=== PATIENT | female | born 1990 | race Caucasian/White ===

== ENCOUNTER 2017-04-13 21:31 | Outpatient (CLI) | payer OTHER ==
[~2017-04-13] VITALS: Ht 165.1 cm; Wt 68.1 kg
[~2017-04-13 21:31] MED LIST: ACHD5005 PO; BSP5T PO; CODE-54 PO; CYCL10TA9 PO; DCS100C PO; FRS325T PO; IBP800T PO; Ibuprofen PO; NAPR-243 PO; NITR-65 PO; PREN1COM11 PO; TRAM50TA2; TRAM50TA2 PO; TRM50T PO
[2017-04-13 21:45] VITALS: BP 121/71
[2017-04-13 22:01] LABS: BILIRUBIN,URINE NEGATIVE (NEGATIVE); KETONES,URINE NEGATIVE (NEGATIVE); LEUKOCYTE ESTERASE ,URINE NEGATIVE (NEGATIVE); NITRITE,URINE NEGATIVE (NEGATIVE); PH,URINE 6 (5-9); PROTEIN,URINE NEGATIVE (NEGATIVE); UROBILINOGEN,URINE NORMAL (NORMAL)
== END 2017-04-13 22:43 | disposition home or self-care (01) ==
LOC: WSo 21:31 → LDRP 21:31 → WSo 22:43
PROVIDERS: ATTEND Family Medicine
DX: O99.89 Other specified diseases and conditions complicating pregnancy, childbirth and the puerperium (principal); N89.8 Other specified noninflammatory disorders of vagina; Z3A.27 27 weeks gestation of pregnancy
CPT/HCPCS: 81000; 99212

== ENCOUNTER → 2017-04-23 | Outpatient (CLI) | payer OTHER ==
--- NOTE | 2017-04-23 16:29 | Diagnostic Imaging Report ---
INDICATION: Late care undergoing evaluation for size and dates as well as anatomical assessment. TECHNIQUE: Multiple real-time grayscale images were obtained over the gravid uterus. COMPARISON: None FINDINGS: Single viable intrauterine currently in a cephalic presentation. There is a lower limit amount of amniotic fluid index at 7.7 cm. Placenta along the fundal aspect without findings to suggest previa. Biometrical measurements are as follows: Biparietal 7.36 cm, age 29 weeks 4 days. Head circumference 27.49 cm, age 30 weeks 1 days. Abdominal circumference 25.70 cm, age 30 weeks 0 days. Femur length 5.71 cm, age 30 weeks 0 days. Sonographic estimate age: 30 weeks 0 days. Sonographic estimated date of delivery: 07/02/2017. Estimated Weight: 1471 gm (+/- 215 gm). LMP percentile: N/A%. heart rate: 149 beats per minute. number: 1 of 1. IMPRESSION: Single viable intrauterine currently in a cephalic presentation. Sonographically estimated age 30 weeks 0 days for an estimated date of delivery July 02, 2017. There is borderline oligohydramnios present. Dictated by: Dictated on workstation # [id number]
== END ==
LOC: RAD 15:09
PROVIDERS: ATTEND Family Medicine
DX: Z36.3 Encounter for antenatal screening for malformations (principal); Z3A.30 30 weeks gestation of pregnancy
CPT/HCPCS: 76805

== ENCOUNTER → 2017-05-15 | Outpatient (CLI) | payer OTHER ==
--- NOTE | 2017-05-15 11:24 | Diagnostic Imaging Report ---
INDICATION: History of late care. heart arrhythmia TECHNIQUE: The fetus was observed by the floorworker lasting for purposes of a nonstress biophysical profile evaluation. FINDINGS: Intrauterine is currently in a cephalic presentation. The placenta is along the posterior fundal aspect without evidence for previa. cardiac activity at 149 beats per minute. Normal amount of amniotic fluid with an index at 9.9 cm. Biophysical Profile Scoring: breathin Body movement: 2 tone: 2 Amniotic fluid: 2 Total BPP Score: 8/8 IMPRESSION: 1. Normal biophysical profile score. Dictated by: Dictated on workstation # [id number]
== END ==
LOC: RAD 10:52
PROVIDERS: ATTEND Family Medicine
DX: Z36.2 Encounter for other antenatal screening follow-up (principal); Z3A.32 32 weeks gestation of pregnancy
CPT/HCPCS: 76819

== ENCOUNTER 2017-06-15 21:05 | Outpatient (CLI) | payer OTHER ==
[~2017-06-15] VITALS: Ht 162.6 cm; Wt 76.3 kg
[2017-06-15 21:20] VITALS: BP 126/75
[2017-06-15 21:33] LABS: BILIRUBIN,URINE NEGATIVE (NEGATIVE); KETONES,URINE NEGATIVE (NEGATIVE); LEUKOCYTE ESTERASE ,URINE NEGATIVE (NEGATIVE); NITRITE,URINE NEGATIVE (NEGATIVE); PH,URINE 6 (5-9); PROTEIN,URINE NEGATIVE (NEGATIVE); UROBILINOGEN,URINE NORMAL (NORMAL)
[2017-06-15 21:40] LABS: SQUAMOUS EPITHELIAL CELL,UR RARE /HPF
[2017-06-15] MEDS: D5 LR IV SOLUTION 1,000 ML IV SCH (22:30)
[2017-06-15] MEDS ORDERED: D5 LR IV SOLUTION 1,000 ML IV ONE (22:39)
[2017-06-15] MEDS ORDERED: PREN-142 PO (23:32)
[2017-06-16 04:26] VITALS: BP 120/69
[2017-06-16] MEDS ORDERED: D5 LR IV SOLUTION 1,000 ML IV ONE (06:33)
[2017-06-16] MEDS: D5 LR IV SOLUTION 1,000 ML IV SCH (06:45)
[2017-06-16 07:23] VITALS: BP 128/81
--- NOTE | 2017-06-16 07:30 | Short Stay Summary ---
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 Patient is currently in long-term and was brought in by [facility]'s Department. Apparently she has also had a little bit of vaginal spotting. Date of Admission patient was not admitted but kept as an outpatient and arrived late p.m. of June 15, 2017 Date of Discharge June 16, 2017 Time Seen by Provider: 07:25 Attending Physician Kolton Alonso MD Admitting Physician Melva Steinberg MD Consult Allergies and Home Medications Allergies Coded Allergies: No Known Drug Allergies (Verified , 08/08/09) Home Medications Vit No.124/Iron/FA 1 Each Tablet, 1 EACH PO DAILY, (Reported) Past Jzuqgpf-Bywnck-Wdsayc Hx Patient Social History Smoking Status: Former Smoker Former Smoker, Quit: Apr 02, 2017 Type Used: Cigarettes Physical Abuse Screen: No Sexual Abuse: No Recent Foreign Travel: No Contact w/other who traveled: No Recent Infectious Disease Expo: No Immunizations Up To Date Tetanus Booster (TDap): More than 5yrs Pediatric: Yes Date of Influenza Vaccine: Apr 23, 2017 Neurological Seizure Disorder Reproductive System Expected Date of Delivery: Jul 02, 2017 Hx : 3 Hx Para: 2 Hx Total # of Abortions (Spona: 0 Hx Reproductive Disorders: No Sexually Transmitted Disease: No (HPV) HIV/AIDS: No Female Reproductive Disorders: Ovarian Cyst HEENT Loss of Vision: Denies Hearing Impairment: Denies Blood Transfusions Adverse Reaction to a Blood Tr: No Family Medical History Family Hx: Alcoholism 19 MOTHER, Onset:40's - 50 Family history: Hypertension 19 MOTHER, Onset:40's - 50 History of drug abuse 19 FATHER, Onset:'s - 19 MOTHER, Onset:25's - 30 No Family History of: Abdominal aortic aneurysm Jayess's disease Aphasia Cancer Cancer of colon Cataract Chest pain Congenital heart disease Congestive heart failure Cystic fibrosis Dementia Dysphagia Family history: Allergy Family history: Alzheimer's disease Family history: Arthritis Family history: Asthma Family history: Breast disease Family history: Cardiovascular disease Family history: Coronary thrombosis Family history: Diabetes mellitus Family history: Gastrointestinal disease Family history: Glaucoma Family history: Osteoporosis Family history: Thyroid disorder Headache Hearing loss Heart disease Hereditary disease History of - anemia History of - disorder History of - respiratory disease Human immunodeficiency virus (HIV) seropositivity Hypercholesterolemia Infertile Kidney disease Malignant neoplasm of lung Myocardial infarction Parkinson's disease Prostate cancer Psychotic disorder Seizure disorder Stroke Tuberculosis Visual impairment Constitutional: see HPI Physical Exam Vital Signs Vital Sign - Last 12Hours 06/15/17 21:20 Temp 98.5 Pulse 93 Resp 18 B/P (MAP) 126/75 O2 Delivery Room Air Capillary Refill : General Appearance: No Apparent Distress Gastrointestinal: Soft (with uterus not contracted) Comments cervix is noted to be at posterior presentation, 1-1/2 cm dilated, 50 percent cervically effaced. monitoring is reactive with only an occasional contraction at 07 25 in the morning. Short Stay Diagnosis Discharge Diagnosis-Short Stay Admission Diagnosis: 1. Intrauterine at 37 weeks 5 days gestationnonlabored Final Discharge Diagnosis: 1. Intrauterine at 37 weeks 5 day gestation on labor Conclusion Labs Laboratory Tests 06/15/17 21:22: Urine Color YELLOW, Urine Clarity CLEAR, Urine pH 6, Urine Specific [place] 1.010L, Urine Protein NEGATIVE, Urine Glucose (UA) NEGATIVE, Urine Ketones NEGATIVE, Urine Nitrite NEGATIVE, Urine Bilirubin NEGATIVE, Urine Urobilinogen NORMAL, Urine Leukocyte Esterase NEGATIVE, Urine RBC (Auto) 1+H, Urine RBC 0-2, Urine WBC NONE, Urine Squamous Epithelial Cells RARE, Urine Crystals NONE, Urine Bacteria NONE, Urine Casts NONE, Urine Mucus NEGATIVE, Urine Culture Indicated NO, Urine Opiates Screen NEGATIVE, Urine Oxycodone Screen NEGATIVE, Urine Methadone Screen NEGATIVE, Urine Propoxyphene Screen NEGATIVE, Urine Barbiturates Screen NEGATIVE, Ur Tricyclic Antidepressants Screen NEGATIVE, Urine Phencyclidine Screen NEGATIVE, Urine Amphetamines Screen NEGATIVE, Urine Methamphetamines Screen NEGATIVE, Urine Benzodiazepines Screen NEGATIVE, Urine Cocaine Screen NEGATIVE, Urine Cannabinoids Screen NEGATIVE Conclusion/Plan long discussion this morning with patient regarding definition of labor which include cervical change. She was monitored throughout the early head start teacher basically over 7 hours and she was noted to have no cervical change. She only has an occasional contraction and she will be sent back to [facility] with labor precautions given. Patient was comfortable with recommendations and she will follow-up with her OB provider at [facility] within the week. KOLTON ALONSO MD Jun 16, 2017 07:30
[2017-06-16 07:50] VITALS: BP 128/81
== END 2017-06-16 07:50 | disposition home or self-care (01) ==
LOC: LDRP 21:05 → WSo 21:05
PROVIDERS: ATTEND Family Medicine
DX: O47.1 False labor at or after 37 completed weeks of gestation (principal); Z3A.37 37 weeks gestation of pregnancy
CPT/HCPCS: 80306; 81000; 96360; 96361; 99213

== ENCOUNTER 2017-06-20 23:48 | Outpatient (CLI) | payer OTHER ==
[~2017-06-20] VITALS: Ht 162.6 cm; Wt 75.9 kg
[~2017-06-20 23:48] MED LIST changes: +PREN-142 PO
[2017-06-21 00:28] VITALS: BP 141/70
--- NOTE | 2017-06-21 12:20 | Physician Query-Final Dx ---
BARBY PAULSON 06/21/17 1220: Clinic Account Progress/Dx Physician Query: Please give diagnosis Date of Service Jun 20, 2017 at 23:48 TYLER TERRAZAS DO 07/04/17 1526: Clinic Account Progress/Dx DIAGNOSIS: Diagnosis 38 week GA vaginal discharge BARBY PAULSON Jun 21, 2017 12:20 TYLER TERRAZAS DO Jul 04, 2017 15:26
== END 2017-06-21 00:40 | disposition home or self-care (01) ==
LOC: WSo 23:48 → LDRP 23:49 → WSo 06-21 00:40
PROVIDERS: ATTEND Family Medicine
DX: N89.8 Other specified noninflammatory disorders of vagina (principal); Z3A.38 38 weeks gestation of pregnancy
CPT/HCPCS: 99213

== ENCOUNTER 2017-06-25 23:16 | Outpatient (CLI) | payer OTHER ==
[~2017-06-25] VITALS: Ht 162.6 cm; Wt 78.6 kg
[2017-06-25 23:49] LABS: BILIRUBIN,URINE NEGATIVE (NEGATIVE); KETONES,URINE NEGATIVE (NEGATIVE); LEUKOCYTE ESTERASE ,URINE NEGATIVE (NEGATIVE); NITRITE,URINE NEGATIVE (NEGATIVE); PH,URINE 6.5 (5-9); PROTEIN,URINE NEGATIVE (NEGATIVE); UROBILINOGEN,URINE NORMAL (NORMAL)
[2017-06-26 00:20] VITALS: BP 124/83
--- NOTE | 2017-06-26 13:32 | Physician Query-Final Dx ---
BARBY PAULSON 06/26/17 1332: Clinic Account Progress/Dx Physician Query: Please give diagnosis Date of Service Jun 25, 2017 at 23:16 VIANNEY FOX MD 06/29/17 1422: Clinic Account Progress/Dx DIAGNOSIS: Diagnosis Third trimester Contractions BARBY PAULSON Jun 26, 2017 13:32 VIANNEY FOX MD Jun 29, 2017 14:22
== END 2017-06-26 00:40 | disposition home or self-care (01) ==
LOC: WSo 23:16 → LDRP 23:17 → WSo 06-26 00:40
PROVIDERS: ATTEND Family Medicine
DX: O47.1 False labor at or after 37 completed weeks of gestation (principal); Z3A.39 39 weeks gestation of pregnancy
CPT/HCPCS: 81000; 99213

== ENCOUNTER 2017-06-29 22:34 | Outpatient (CLI) | payer OTHER ==
[~2017-06-29] VITALS: Ht 162.6 cm; Wt 77.7 kg
[2017-06-29 23:19] VITALS: BP 121/65
[2017-06-29 23:49] VITALS: BP 121/73
--- NOTE | 2017-07-02 07:45 | Physician Query-Final Dx ---
JIM QUISPE 07/02/17 0745: Clinic Account Progress/Dx Physician Query: Please give diagnosis Date of Service Jun 29, 2017 at 22:34 VIANNEY FOX MD 07/05/17 0437: Clinic Account Progress/Dx DIAGNOSIS: Diagnosis Third trimester Leaking fluid contractions in third trimester JIM QUISPE Jul 02, 2017 07:45 VIANNEY FOX MD Jul 05, 2017 04:37
== END 2017-06-29 23:59 | disposition home or self-care (01) ==
LOC: WSo 22:34
PROVIDERS: ATTEND Family Medicine
DX: O47.1 False labor at or after 37 completed weeks of gestation (principal); Z3A.39 39 weeks gestation of pregnancy
CPT/HCPCS: 99214

== ENCOUNTER 2017-07-04 18:48 | Inpatient (IN) | payer OTHER ==
[2017-07-04] VITALS (8 sets, daily range): BP systolic 115–165; BP diastolic 70–96
[~2017-07-04] VITALS: Ht 162.6 cm; Wt 77.6 kg
--- OUTSIDE RECORDS SUMMARY | 2017-07-04 19:00 | XMS REPORT ---
Author Author SERGIO MCINTYRE [facility] Address [address] [place] [address] Care Team Providers Care Customer Service Security Officer Name Role Phone SERGIO MCINTYRE Unavailable PROBLEMS Type Condition ICD9-CM Code [id number] Code Onset Dates Condition Status SNOMED Code Problem Anxiety state, unspecified 300.00 Active 245206580 Problem Mood disorder F39 Active 94954618 Problem Cannabis dependence, abuse F12.20 Active 18631154 Problem Dysmenorrhea, unspecified N94.6 Active 867204716 Problem Unspecified drug-induced mental disorder 292.9 Active 340908132 Problem Other stimulant dependence, 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
--- OUTSIDE RECORDS SUMMARY | 2017-07-04 19:00 | XMS REPORT ---
Author Author SERGIO MCINTYRE 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
--- OUTSIDE RECORDS SUMMARY | 2017-07-04 19:00 | XMS REPORT ---
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
--- OUTSIDE RECORDS SUMMARY | 2017-07-04 19:00 | XMS REPORT ---
Author Author SERGIO MCINTYRE [facility] Address [address] [place] [address] Care Team Providers Care Promotions Director Name Role Phone SERGIO MCINTYRE Unavailable PROBLEMS Type Condition ICD9-CM Code OAF43-HT Code Onset Dates Condition Status SNOMED Code Problem Anxiety state, unspecified 300.00 Active 671920266 Problem Mood disorder F39 Active 45638590 Problem Cannabis dependence, abuse F12.20 Active 90810123 Problem Dysmenorrhea, unspecified N94.6 Active 940878602 Problem Unspecified drug-induced mental disorder 292.9 Active 482679378 Problem Other stimulant dependence, 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
--- OUTSIDE RECORDS SUMMARY | 2017-07-04 19:01 | XMS REPORT ---
Author Author SERGIO MCINTYRE [facility] Address [address] [place] [address] Care Team Providers Care Cotton Ball Bagger Name Role Phone SERGIO MCINTYRE Unavailable PROBLEMS Type Condition ICD9-CM Code API66-KT Code Onset Dates Condition Status SNOMED Code Problem Unspecified drug-induced mental disorder 292.9 Active 553675783 Problem Anxiety state, unspecified 300.00 Active 445659748 Problem Gastro-esophageal reflux disease without esophagitis K21.9 Active 096395968 Problem Mood disorder F39 Active 53021182 Problem Adjustment disorder with anxiety F43.22 Active 84205131 Problem Dysmenorrhea, unspecified N94.6 Active 857591147 Problem Cannabis dependence, abuse F12.20 Active 62063845 Problem Other stimulant dependence, 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
--- OUTSIDE RECORDS SUMMARY | 2017-07-04 19:01 | XMS REPORT ---
Author Author SERGIO MCINTYRE [facility] Address [address] [place] [address] Care Team Providers Care Buffing And Polishing Wheel Repairer Name Role Phone SERGIO MCINTYRE Unavailable PROBLEMS Type Condition ICD9-CM Code FRU98-KU Code Onset Dates Condition Status SNOMED Code Problem Unspecified drug-induced mental disorder 292.9 Active 961799872 Problem Anxiety state, unspecified 300.00 Active 155288489 Problem Gastro-esophageal reflux disease without esophagitis K21.9 Active 421281408 Problem Mood disorder F39 Active 01777270 Problem Adjustment disorder with anxiety F43.22 Active 77021855 Problem Dysmenorrhea, unspecified N94.6 Active 373259695 Problem Cannabis dependence, abuse F12.20 Active 17106996 Problem Other stimulant dependence, 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
--- OUTSIDE RECORDS SUMMARY | 2017-07-04 19:01 | XMS REPORT ---
Author Author SERGIO MCINTYRE Organization [facility] Address [address] [place] [address] Care Team Providers Care Sticker On Name Role Phone SERGIO MCINTYRE Unavailable PROBLEMS Type Condition ICD9-CM Code YDC38-PN Code Onset Dates Condition Status SNOMED Code Problem Unspecified drug-induced mental disorder 292.9 Active 864462906 Problem Anxiety state, unspecified 300.00 Active 266636786 Problem Gastro-esophageal reflux disease without esophagitis K21.9 Active 974861358 Problem Mood disorder F39 Active 59305215 Problem Adjustment disorder with anxiety F43.22 Active 49444224 Problem Dysmenorrhea, unspecified N94.6 Active 628911545 Problem Cannabis dependence, abuse F12.20 Active 52096632 Problem Other stimulant dependence, 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
--- OUTSIDE RECORDS SUMMARY | 2017-07-04 19:01 | XMS REPORT ---
Author Author SARAI WREN Organization [facility] Address [address] [place] [address] Care Team Providers Care Business Performance Manager Name Role Phone SARAI WREN Unavailable PROBLEMS Type Condition ICD9-CM Code OWA76-FI Code Onset Dates Condition Status SNOMED Code Problem Anxiety state, unspecified 300.00 Active 309801229 Problem Mood disorder F39 Active 84866865 Problem Cannabis dependence, abuse F12.20 Active 01584523 Problem Dysmenorrhea, unspecified N94.6 Active 044302193 Problem Unspecified drug-induced mental disorder 292.9 Active 481222028 Problem Other stimulant dependence, 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 Active 148720356 Problem Adjustment disorder with anxiety F43.22 Active 09222768 ALLERGIES No Known Allergies SOCIAL HISTORY Never Assessed PLAN OF CARE Activity Details Follow Up prn Reason: VITAL SIGNS Height 64 in 2016-10-05 Weight 139.6 lbs 2016-10-05 Temperature 97.2 degrees Fahrenheit 2016-10-05 Heart Rate 112 bpm 2016-10-05 Respiratory Rate 22 2016-10-05 BMI 23.96 kg/m2 2016-10-05 Blood pressure systolic 100 mmHg 2016-10-05 Blood pressure diastolic 70 mmHg 2016-10-05 MEDICATIONS Medication Instructions Dosage Frequency Start Date End Date Duration Status Permethrin 5 % Externally Apply from neck to toes at bedtime and leave for 8- 10 hours then shower off in AM as directed Sep, Sep, 1 days Active RESULTS No Results PROCEDURES No Known procedures IMMUNIZATIONS No Known Immunizations MEDICAL (GENERAL) HISTORY Type Description Date Medical History Hep C
--- OUTSIDE RECORDS SUMMARY | 2017-07-04 19:01 | XMS REPORT ---
Author Author CLAUDINE KLEIN Organization [facility] Address [address] [place] [address] Care Team Providers Care Die Casting Machine Maintainer Name Role Phone CLAUDINE KLEIN Unavailable PROBLEMS Type Condition ICD9-CM Code THG30-PG Code Onset Dates Condition Status SNOMED Code Problem Anxiety state, unspecified 300.00 Active 425927181 Problem Mood disorder F39 Active 99702201 Problem Cannabis dependence, abuse F12.20 Active 17484690 Problem Dysmenorrhea, unspecified N94.6 Active 242561963 Problem Unspecified drug-induced mental disorder 292.9 Active 133010021 Problem Other stimulant dependence, 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 Active 217012681 Problem Adjustment disorder with anxiety F43.22 Active 70716643 ALLERGIES No Information SOCIAL HISTORY Never Assessed PLAN OF CARE Activity Details Follow Up next available Reason:anxiety VITAL SIGNS MEDICATIONS Medication Instructions Dosage Frequency Start Date End Date Duration Status BusPIRone HCl 10 MG Orally Twice a day 2 tablets 12h Oct, Active Bactrim DS 800-160 MG Orally Twice a day 1 tablet 12h Sep,Sep 10 day(s) Active Seroquel 100 MG Orally twice a day 1 tablet 12h Jan, Active RESULTS No Results PROCEDURES Procedure Date Ordered Result Body Site Psychotherapy, patient &/family, 30 minutes, established patient September 27, 2016 IMMUNIZATIONS No Known Immunizations MEDICAL (GENERAL) HISTORY Type Description Date Medical History Hep C
--- OUTSIDE RECORDS SUMMARY | 2017-07-04 19:01 | XMS REPORT ---
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 Active 764810089 Problem Adjustment disorder with anxiety F43.22 Active 24809639 ALLERGIES Unknown Allergies SOCIAL HISTORY No smoking Hx information available PLAN OF CARE VITAL SIGNS Height 64 in 2016-08-08 Weight 142 lbs 2016-08-08 Heart Rate 110 bpm 2016-08-08 Respiratory Rate 16 2016-08-08 BMI 24.37 kg/m2 2016-08-08 Blood pressure systolic 110 mmHg 2016-08-08 Blood pressure diastolic 66 mmHg 2016-08-08 MEDICATIONS Medication Instructions Dosage Frequency Start Date End Date Duration Status Seroquel 100 MG Orally twice a day 1 tablet 12h 12 Jan, 2016 Active RESULTS Name Result Date Reference Range HCG, QUANTITATIVE 2016-08-08 Specimen Identification Status hCG,Beta Subunit,Qnt,Serum CBC 2016-08-08 Please note WBC RBC Hemoglobin Hematocrit MCV MCH MCHC RDW Platelets NRBC Neutrophils Lymphs Monocytes Eos Basos Immature Granulocytes Neutrophils (Absolute) Lymphs (Absolute) Monocytes(Absolute) Eos (Absolute) Baso (Absolute) Immature Grans (Abs) Immature Cells Bands Blasts/blast like cells Megakaryocytes Metamyelocytes Myelocytes Other, Lineage Uncertain Promyelocytes Hematology Comments: Request Problem Request Problem PROCEDURES Procedure Date Ordered Related Diagnosis Body Site Office Visit, New Pt., Level 2 Aug 08, 2016 COMPLETE CBC W/AUTO DIFF WBC Aug 08, 2016 VENIPUNCT, ROUTINE* Aug 08, 2016 CHORIONIC GONADOTROPIN TEST Aug 08, 2016 IMMUNIZATIONS No Known Immunizations
--- OUTSIDE RECORDS SUMMARY | 2017-07-04 19:01 | XMS REPORT ---
Author Author SERGIO MCINTYRE [facility] Address [address] [place] [address] Care Team Providers Care Leather Roller Name Role Phone SERGIO MCINTYRE Unavailable PROBLEMS Type Condition ICD9-CM Code DNW48-YE Code Onset Dates Condition Status SNOMED Code Problem Anxiety state, unspecified 300.00 Active 796080187 Problem Mood disorder F39 Active 06973508 Problem Cannabis dependence, abuse F12.20 Active 44291499 Problem Dysmenorrhea, unspecified N94.6 Active 137172900 Problem Unspecified drug-induced mental disorder 292.9 Active 007380578 Problem Other stimulant dependence, 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
--- OUTSIDE RECORDS SUMMARY | 2017-07-04 19:01 | XMS REPORT ---
Author Author SERGIO MCINTYRE [facility] Address [address] [place] [address] Care Team Providers Care Executive Director [employer] Name Role Phone SERGIO MCINTYRE Unavailable PROBLEMS Type Condition ICD9-CM Code [id number] Code Onset Dates Condition Status SNOMED Code Problem Unspecified drug-induced mental disorder 292.9 Active 408921358 Problem Anxiety state, unspecified 300.00 Active 617241840 Problem Gastro-esophageal reflux disease without esophagitis K21.9 Active 379212329 Problem Mood disorder F39 Active 85694075 Problem Adjustment disorder with anxiety F43.22 Active 98799886 Problem Dysmenorrhea, unspecified N94.6 Active 926247734 Problem Cannabis dependence, abuse F12.20 Active 57293499 Problem Other stimulant dependence, 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
[2017-07-04] MEDS ORDERED: D5 LR IV SOLUTION 1,000 ML IV ONE (19:33)
[2017-07-04] MEDS ORDERED: D5 LR IV SOLUTION 1,000 ML IV SCH (19:51)
[2017-07-04] MEDS ORDERED: AMPICILLIN INJECTION 2,000 MG in NS (IVPB) 50 ML IV SCH (19:51)
[2017-07-04] MEDS ORDERED: AMPICILLIN 2000 MG INJECTION (IM/IV) ONE (19:56)
[2017-07-04] MEDS ORDERED: NS (IVPB) 50 ML ONE (19:57)
[2017-07-04] MEDS ORDERED: DINOPROSTONE 10 MG (CERVIDIL) INSERT PV ONE (20:00)
[2017-07-04] MEDS ORDERED: MINERAL OIL CONCENTRATE 99.9% 15 ML UDC TOP PRN (20:00)
[2017-07-04 20:02] LABS: BASOPHILS % (AUTO) 0 % (0-10); EOSINOPHILS # (AUTO) 0.1 10^3/uL (0.0-0.3); EOSINOPHILS % (AUTO) 1 % (0-10); LYMPHOCYTES # (AUTO) 1.3 X 10^3 (1.0-4.0); LYMPHOCYTES % (AUTO) 16 % (12-44); MEAN CORPUSCULAR HEMOGLOBIN 28 PG (25-34); MEAN CORPUSCULAR HGB CONC 34 G/DL (32-36); MEAN CORPUSCULAR VOLUME 83 FL (80-99); MEAN PLATELET VOLUME 11.8 FL (7.4-10.4); MONOCYTES # (AUTO) 0.5 X 10^3 (0.0-1.0); MONOCYTES % (AUTO) 6 % (0-12); NEUTROPHILS # (AUTO) 6.5 X 10^3 (1.8-7.8); NEUTROPHILS % (AUTO) 77 % (42-75); PLATELET COUNT 213 10^3/uL (130-400); RED BLOOD COUNT 4.74 10^6/uL (4.35-5.85); RED CELL DISTRIBUTION WIDTH 13.6 % (10.0-14.5); WHITE BLOOD COUNT 8.4 10^3/uL (4.3-11.0)
--- NOTE | 2017-07-04 20:44 | History & Physical-OB ---
JODYRADHA Laws STUDENT 07/04/17 2044: OB - Chief Complaint & HPI Date/Time Date of Admission: Date of Admission: Jul 04, 2017 at 18:48 Time Seen by Provider: 20:39 Chief Complaint/History OB-Reason for Admission/Chief: Induction of Labor Hx : 5 Hx Para: 3 Hx Last Menstrual Period: 10/09/16 Expected Date of Delivery: Jul 02, 2017 Gestational Age in Weeks: 40 Gestational Age in Days: 2 Indication for induction: post dates Allergies and Home Medications Allergies Coded Allergies: No Known Drug Allergies (Verified , 08/08/09) Home Medications Vit No.124/Iron/FA 1 Each Tablet, 1 EACH PO DAILY, (Reported) OB - History Hx of Present Care: Yes Ultrasounds: Normal mid trimester US Obstetrical Complications: None Medical Complications: None Information Induced Hypertension: No Maternal Gestational Diabetes: No Obstetrical History Hx : 5 Hx Para: 3 Hx # Term Pregnancies: 3 Hx # Pregnancies: 0 Number of Living Children: 3 Hx Termination: No Hx Total # of Abortions (Spona: 1 Hx Multiple Gestation: No Hx Ectopic : No Hx Stillbirth: No Hx Complication: No Hx Induced Hypertens: No Hx Maternal Gestational Diabet: No Delivery History Hx Dystocia: No Hx Forceps Assisted Delivery: No Hx Vacuum Extraction Assisted: No Hx Placenta Abnormality: No Hx Distress: No Hx Large For Gestational Age I: No Hx Small for Gestational Age I: No Hx Section: No Hx Vaginal Delivery Post C-Sec: No Hx Blood Disorders: No Adverse Rxn to Tranfusion: No Patient Past Medical History Substance abuse, Hepatitis C Social History/Family History HIV/AIDS: No Sexually Transmitted Disease: No (HPV) Alcohol Use: Past History Recreational Drug Use: Yes Smoking Cessation: Current every day smoker 2nd Hand Smoke Exposure: Yes Immunizations Hepatitis A: Yes Hepatitis B: Yes Tetanus Booster (TDap): More than 5yrs Date of Influenza Vaccine: Apr 23, 2017 Rubella: immune RPR/VDRL: Negative GBS Status: Positive HBsAG: Negative OB - Admission Exam Physical Exam Heart: Rhythm Normal Abdomen: Non tender Cervical Dilatation: 2cm Effacement: 50% Adrian Scoring Tool (Modified) Dilation (cm): 1-2cm (1) Effacement (%): 31-51% (1) Labs Laboratory Tests Test 07/04/17 19:25 Range/Units White Blood Count 8.4 4.3-11.0 10^3/uL Red Blood Count 4.74 4.35-5.85 10^6/uL Hemoglobin 13.4 11.5-16.0 G/DL Hematocrit 39 35-52 % Mean Corpuscular Volume 83 80-99 FL Mean Corpuscular Hemoglobin 28 25-34 PG Mean Corpuscular Hemoglobin Concent 34 32-36 G/DL Red Cell Distribution Width 13.6 10.0-14.5 % Platelet Count 213 130-400 10^3/uL Mean Platelet Volume 11.8 H 7.4-10.4 FL Neutrophils (%) (Auto) 77 H 42-75 % Lymphocytes (%) (Auto) 16 12-44 % Monocytes (%) (Auto) 6 0-12 % Eosinophils (%) (Auto) 1 0-10 % Basophils (%) (Auto) 0 0-10 % Neutrophils # (Auto) 6.5 1.8-7.8 X 10^3 Lymphocytes # (Auto) 1.3 1.0-4.0 X 10^3 Monocytes # (Auto) 0.5 0.0-1.0 X 10^3 Eosinophils # (Auto) 0.1 0.0-0.3 10^3/uL Basophils # (Auto) 0.0 0.0-0.1 10^3/uL OB - Assessment/Plan/Diagnosis Assessment Assessment: group B positive strep, induction of labor Plan Plan: Induction Induction Method: other (Cervidil) Other Plan 26 y/o at 40.2 wga here for induction of labor due to post dates using Cervidil. Dilated 2cm, 50% effaced. GBS positive, Rubella immune. Positive UDS for meth at intake. Copy Copies To 1: VIANNEY FOX MD, HOLLY R MD 07/04/17 2113: OB - Chief Complaint & HPI Date/Time Time Seen by Provider: 21:11 Allergies and Home Medications Allergies Coded Allergies: No Known Drug Allergies (Verified , 08/08/09) Home Medications Vit No.124/Iron/FA 1 Each Tablet, 1 EACH PO DAILY, (Reported) OB - History Hx of Present Care: Yes Ultrasounds: Normal mid trimester US Social History/Family History Smoking Cessation: Current some day smoker (Smoked 1st month ) OB - Assessment/Plan/Diagnosis Assessment Assessment: group B positive strep, induction of labor Plan Plan: Induction Other Plan 26 yo @40.2 wga here for IOL for post dates Plan IOL: Cervidil/Pitocin GBS +, will start Ampicillin at 5 cm or SROM Incarcerated: SW consult Plans to adopt infant away Copy Copies To 1: VIANNEY FOX MD [facility] Jul 04, 2017 20:44 VIANNEY FOX MD Jul 04, 2017 21:13
[2017-07-04 20:48] LABS: BILIRUBIN,URINE NEGATIVE (NEGATIVE); KETONES,URINE NEGATIVE (NEGATIVE); LEUKOCYTE ESTERASE ,URINE 1+ (NEGATIVE); NITRITE,URINE NEGATIVE (NEGATIVE); PH,URINE 7 (5-9); PROTEIN,URINE NEGATIVE (NEGATIVE); UROBILINOGEN,URINE NORMAL (NORMAL)
[2017-07-04 21:06] LABS: WBC,URINE 0-2 /HPF
[2017-07-04] MEDS ORDERED: CATHETER FLUSH 10 ML SYR IV SCH (22:00)
[2017-07-04] MEDS ORDERED: ZOLPIDEM 5 MG (AMBIEN) TAB ONE (23:44)
[2017-07-04] MEDS ORDERED: ACETAMINOPHEN 500 MG TAB (TYLENOL) PO PRN (23:45)
[2017-07-05] VITALS (38 sets, daily range): BP systolic 102–154; BP diastolic 56–97
[2017-07-05] MEDS ORDERED: AMPICILLIN INJECTION 1,000 MG in NS (IVPB) 50 ML IV SCH ×2
[2017-07-05] MEDS ORDERED: ZOLPIDEM 5 MG (AMBIEN) TAB PO ONE
[2017-07-05] MEDS ORDERED: SUFENTA 0.6MCG/ML BUPIVA 0.125 100 ML ONE (00:11)
[2017-07-05] MEDS ORDERED: fentaNYL INJECTION 100 MCG/2 ML AMP ONE (01:06)
[2017-07-05] MEDS ORDERED: LACTATED RINGERS 1,000 ML IV ONE ×2 (01:41)
[2017-07-05] MEDS ORDERED: ONDANSETRON 4 MG/2 ML (SDV) Z0FRAN IV PRN (01:45)
[2017-07-05] MEDS ORDERED: EPIDURAL (SUFENTA 0.6MCG/ML BUPIVA 0.125%) 100 ML BAG EPI PRN (01:45)
[2017-07-05] MEDS ORDERED: NALOXONE 0.4 MG/ML 1 ML (NARCAN) VIAL IV PRN (01:45)
[2017-07-05] MEDS ORDERED: ACET-2267 PO (01:50)
[2017-07-05] MEDS ORDERED: LIDOCAINE PF 2% 5 ML (XYLOCAINE) VIAL ONE (02:40)
[2017-07-05] MEDS ORDERED: BUPIVACAINE 0.25% 30 ML (SENSORCAINE) VIAL ONE (02:40)
[2017-07-05] MEDS ORDERED: OXYTOCIN/NORMAL SALINE 500 ML IV ONE (03:14)
[2017-07-05] MEDS ORDERED: LIDOCAINE/EPI 2% 1:200,00 (XYLOCAINE) 10 ML VIAL ONE (03:14)
[2017-07-05] MEDS: OXYTOCIN/NORMAL SALINE 500 ML IV SCH ×2 (04:11→04:45)
[2017-07-05] MEDS ORDERED: MEASLES,MUMPS,RUBELLA 1 EA INJ SQ ONE (04:30)
[2017-07-05] MEDS ORDERED: TETANUS,DIPTH,PERTUSS P/F (BOOSTRIX) 0.5 ML VIAL IM ONE (04:30)
[2017-07-05] MEDS ORDERED: BENZOCAINE/MENTHOL (DERMOPLAST) 56 ML CAN TP PRN (04:30)
[2017-07-05] MEDS ORDERED: WITCH HAZEL(TUCKS) 40 EA JAR TOP PRN (04:30)
--- NOTE | 2017-07-05 04:35 | OB Labor & Delivery Record ---
Vag Delivery Note Vag Delivery Note Date of Delivery: 07/05/17 Preoperative Diagnosis: Valeria Warner is a (26 /Para 5 / 3, Gestational Age (wks)40.3with admitted for IOL for post dates Postoperative Diagnosis: Same Surgeon: VIANNEY FOX Operator Maintainer: [None] Anesthesia: [Epidural] Delivery Type: 07/05/17 @ 0407 Findings: Term female infant, AGA, intact placenta Viable female infant, apgars 7/8 , weight 3595, 7#15 Lacerations: Periurethral abrasions, intact perineum Intact placenta with 3 vessel cord. Nuchal cord x1, body cord or shoulder dystocia Estimated Blood Loss: 125 ml Complications: None Condition: Stable Description of Procedure: The patient is a 26 yo @ 40.3 wga who presented for IOL for post dates. She was admitted and informed consent was obtained. Her labor course was unremarkable. She progressed to complete dilatation and began to push. She was then set up for delivery. The 's head was delivered atraumatically in the ASHLEY position and nuchal cord was reduced. The shoulders and remainder of the 's body were then delivered without difficulty. Upon delivery, the head was held below the level of the perineum and the mouth and nares were bulb suctioned. The cord was doubly clamped and cut and the was handed off to the pediatric staff. An intact placenta with 3-vessel cord delivered via Margie and there was found to be minimal bleeding.~ Vigorous fundal massage was performed and the fundus was found to be firm. IV oxytocin was given. Examination of the vagina and perineum revealed no lacerations that required repaire. Following the repair, sponge, instrument and needle counts were correct. Mom and baby were both in stable condition in the labor suite. Vitals - Labs Vital Signs - I&O Vital Signs Date Time Temp Pulse Resp B/P (MAP) Pulse Ox O2 Delivery O2 Flow Rate FiO2 07/04/17 22:55 99 129/77 (94) 07/04/17 21:55 105 121/70 (87) 07/04/17 20:55 47 126/83 (97) 07/04/17 20:25 82 117/81 (93) 07/04/17 20:10 98 115/76 (89) 07/04/17 19:56 86 121/82 (95) 07/04/17 19:40 84 18 165/90 (115) I & O 07/05/17 07:00 Output Total 0 ml Balance 0 ml Labs Laboratory Tests 07/04/17 19:25: White Blood Count 8.4, Red Blood Count 4.74, Hemoglobin 13.4, Hematocrit 39, Mean Corpuscular Volume 83, Mean Corpuscular Hemoglobin 28, Mean Corpuscular Hemoglobin Concent 34, Red Cell Distribution Width 13.6, Platelet Count 213, Mean Platelet Volume 11.8H, Neutrophils (%) (Auto) 77H, Lymphocytes (%) (Auto) 16, Monocytes (%) (Auto) 6, Eosinophils (%) (Auto) 1, Basophils (%) (Auto) 0, Neutrophils # (Auto) 6.5, Lymphocytes # (Auto) 1.3, Monocytes # (Auto) 0.5, Eosinophils # (Auto) 0.1, Basophils # (Auto) 0.0 07/04/17 20:30: Urine Color YELLOW, Urine Clarity CLEAR, Urine pH 7, Urine Specific [place] 1.010L, Urine Protein NEGATIVE, Urine Glucose (UA) NEGATIVE, Urine Ketones NEGATIVE, Urine Nitrite NEGATIVE, Urine Bilirubin NEGATIVE, Urine Urobilinogen NORMAL, Urine Leukocyte Esterase 1+H, Urine RBC (Auto) NEGATIVE, Urine RBC NONE , Urine WBC 0-2, Urine Squamous Epithelial Cells 2-5, Urine Crystals NONE, Urine Bacteria FEWH, Urine Casts NONE, Urine Mucus NEGATIVE, Urine Culture Indicated NO VIANNEY FOX MD Jul 05, 2017 04:35
[2017-07-05] MEDS ORDERED: CATHETER FLUSH 10 ML SYR IV SCH (06:00)
[2017-07-05] MEDS: IBUPROFEN 600 MG (MOTRIN) TAB PO SCH ×3 (06:38→18:47)
[2017-07-06 00:15] VITALS: BP 111/74
[2017-07-06] MEDS: IBUPROFEN 600 MG (MOTRIN) TAB PO SCH ×2 (00:24→07:29)
[2017-07-06 06:33] LABS: BASOPHILS % (AUTO) 0 % (0-10); EOSINOPHILS # (AUTO) 0.1 10^3/uL (0.0-0.3); EOSINOPHILS % (AUTO) 1 % (0-10); LYMPHOCYTES # (AUTO) 1.6 X 10^3 (1.0-4.0); LYMPHOCYTES % (AUTO) 21 % (12-44); MEAN CORPUSCULAR HEMOGLOBIN 29 PG (25-34); MEAN CORPUSCULAR HGB CONC 34 G/DL (32-36); MEAN CORPUSCULAR VOLUME 85 FL (80-99); MEAN PLATELET VOLUME 11.4 FL (7.4-10.4); MONOCYTES # (AUTO) 0.6 X 10^3 (0.0-1.0); MONOCYTES % (AUTO) 8 % (0-12); NEUTROPHILS # (AUTO) 5.1 X 10^3 (1.8-7.8); NEUTROPHILS % (AUTO) 69 % (42-75); PLATELET COUNT 135 10^3/uL (130-400); RED BLOOD COUNT 3.82 10^6/uL (4.35-5.85); RED CELL DISTRIBUTION WIDTH 13.4 % (10.0-14.5); WHITE BLOOD COUNT 7.4 10^3/uL (4.3-11.0)
[2017-07-06 07:30] VITALS: BP 113/73
[2017-07-06 09:00] VITALS: BP 115/76
[2017-07-06] MEDS ORDERED: IBUP-1773 PO (09:21)
--- NOTE | 2017-07-06 09:23 | Discharge Instructions ---
Discharge Inst-[facility] Serv Depart Medications New, Converted or Re-Newed RX: RX on Chart New Medications: Ibuprofen (Ibuprofen) 600 Mg Tablet 600 MG PO Q6H PRN for PAIN-MODERATE, #60 TAB 0 Refills Continued Medications: Acetaminophen (Tylenol Extra Strength) 500 Mg Tablet 500 MG PO PRN PRN for PAIN-MILD, TAB Vit No.124/Iron/FA ( Vitamin Tablet) 1 Each Tablet 1 EACH PO DAILY, TAB Follow Up/Instructions Goal/Follow Up: Follow up with Dr. Steinberg in 6 weeks for visit. Activity Activity: Activity as Tolerated (avoid strenuous activity x 6 weeks) Nothing Inside Vagina: No Douching, No [place], No Tampons Diet Discharge Diet: Regular Diet Symptoms to Report to : Swelling Increased, Bleeding Excessive, Fever Over 101 Degrees F, Pain/Pressure in Chest, Vaginal Bleeding Increase, Cramps in Feet or Legs, Vaginal Discharge Foul, Shortness of Breath For Any Problems or Questions: Contact Your Physician Copies To 1: VIANNEY STEINBERG MD, BETHANY N MD Jul 06, 2017 09:23
--- NOTE | 2017-07-06 09:25 | Discharge Summary ---
Diagnosis/Chief Complaint Date of Admission Jul 04, 2017 at 6:48 pm Date of Discharge Jul 06, 2017 Admission Diagnosis Admission Diagnosis Induction of labor at 40 weeks Pt currently incarcerated Rubella immune Blood type O+ Discharge Diagnosis s/p spontaneous vaginal delivery at 40 weeks, uncomplicated Asymptomatic anemia Social concerns- placed for adoption, patient returning to law enforcement custody Chief Complaint/HPI Chief Complaint/HPI 26 yo G5 now P4 admitted [facility] L[facility] for IOL due to postdates at 40w2d. Discharge Summary-Simple/Stand Procedures Spontaneous vaginal delivery Discharge Physical Examination Allergies: Coded Allergies: No Known Drug Allergies (Verified , 08/08/09) Vitals & I&Os Vital Sign - Last 12Hours Date Time Temp Pulse Resp B/P (MAP) Pulse Ox O2 Delivery O2 Flow Rate FiO2 07/06/17 07:30 97.9 88 18 113/73 (86) 98 Room Air General Appearance: Alert, No Acute Distress Respiratory: Clear to Auscultation, Normal Air Movement Cardiovascular: Regular Rate, No Murmurs Abdominal: Other (fundus firm below umbilicus, non-tender) Extremities: No Edema Neuro: Normal Speech Psych/Mental Status: Mental Status NL Hospital Course Uncomplicated labor and delivery and course. Patient placed infant for adoption and she was returned to law enforcement custody. Labs Laboratory Tests Test 07/04/17 19:25 07/04/17 20:30 07/06/17 05:38 Range/Units White Blood Count 8.4 7.4 4.3-11.0 10^3/uL Red Blood Count 4.74 3.82 L 4.35-5.85 10^6/uL Hemoglobin 13.4 10.9 L 11.5-16.0 G/DL Hematocrit 39 32 L 35-52 % Mean Corpuscular Volume 83 85 80-99 FL Mean Corpuscular Hemoglobin 28 29 25-34 PG Mean Corpuscular Hemoglobin Concent 34 34 32-36 G/DL Red Cell Distribution Width 13.6 13.4 10.0-14.5 % Platelet Count 213 135 130-400 10^3/uL Mean Platelet Volume 11.8 H 11.4 H 7.4-10.4 FL Neutrophils (%) (Auto) 77 H 69 42-75 % Lymphocytes (%) (Auto) 16 21 12-44 % Monocytes (%) (Auto) 6 8 0-12 % Eosinophils (%) (Auto) 1 1 0-10 % Basophils (%) (Auto) 0 0 0-10 % Neutrophils # (Auto) 6.5 5.1 1.8-7.8 X 10^3 Lymphocytes # (Auto) 1.3 1.6 1.0-4.0 X 10^3 Monocytes # (Auto) 0.5 0.6 0.0-1.0 X 10^3 Eosinophils # (Auto) 0.1 0.1 0.0-0.3 10^3/uL Basophils # (Auto) 0.0 0.0 0.0-0.1 10^3/uL Urine Color YELLOW Urine Clarity CLEAR Urine pH 7 5-9 Urine Specific [place] 1.010 L 1.016-1.022 Urine Protein NEGATIVE NEGATIVE Urine Glucose (UA) NEGATIVE NEGATIVE Urine Ketones NEGATIVE NEGATIVE Urine Nitrite NEGATIVE NEGATIVE Urine Bilirubin NEGATIVE NEGATIVE Urine Urobilinogen NORMAL NORMAL MG/DL Urine Leukocyte Esterase 1+ H NEGATIVE Urine RBC (Auto) NEGATIVE NEGATIVE Urine RBC NONE /HPF Urine WBC 0-2 /HPF Urine Squamous Epithelial Cells 2-5 /HPF Urine Crystals NONE /LPF Urine Bacteria FEW H /HPF Urine Casts NONE /LPF Urine Mucus NEGATIVE /LPF Urine Culture Indicated NO Discharge Instructions to patient/family Please see electronic discharge instructions given to patient. Discharge Medications Reviewed and agree with Discharge Medication list on patient's Discharge Instruction sheet Clinical Quality Measures DVT/VTE Risk/Contraindication: Risk Factor Score Per Nursin RFS Level Per Nursing on Admit: 1=Low/No VTE PPX Copy Copies To 1: VIANNEY FOX MD, BETHANY N MD Jul 06, 2017 9:25 am
== END 2017-07-06 12:00 | DRG 775 ==
LOC: LDRP 18:48
PROVIDERS: ADMIT Family Medicine; ATTEND Family Medicine
PROC: 3E0P7GC Introduction of Other Therapeutic Substance into Female Reproductive, Via Natural or Artificial Opening (ICD-10-PCS; 2017-07-04)
PROC: 10E0XZZ Delivery of Products of Conception, External Approach (ICD-10-PCS; principal; 2017-07-05)
DX: O48.0 Post-term pregnancy (principal); O99.824 Streptococcus B carrier state complicating childbirth; O99.334 Smoking (tobacco) complicating childbirth; F17.210 Nicotine dependence, cigarettes, uncomplicated; O99.324 Drug use complicating childbirth; F15.90 Other stimulant use, unspecified, uncomplicated; O69.81X0 Labor and delivery complicated by cord around neck, without compression, not applicable or unspecified; O90.81 Anemia of the puerperium; Z3A.40 40 weeks gestation of pregnancy; Z37.0 Single live birth
CPT/HCPCS: 36415; 81000; 85025; 86850; 86900; 86901

== ENCOUNTER 2022-05-28 12:59 | Emergency (ER) | payer MEDICAID, OTHER ==
[~2022-05-28] VITALS: Ht 162.5 cm; Wt 61.2 kg
[~2022-05-28 12:59] MED LIST changes: +ACET-2267 PO; +IBUP-1773 PO
--- NOTE | 2022-05-28 13:52 | ED General ---
General Chief Complaint: Dizziness/Syncope Stated Complaint: DIZZY/LIGHTHEADED/ Nursing Triage Note: PT AMB TO TRIAGE WITH C/O DIZZINESS AND LH THIS MORNING. PT STATES SHE RELAPSED ON METH AND HER LAST USE WAS THIS MORNING Source of Information: Patient Exam Limitations: No Limitations History of Present Illness Date Seen by Provider: May 28, 2022 Time Seen by Provider: 13:40 Initial Comments Patient is a 31-year-old female long history of methamphetamine dependence states has been "clean" for about 2 years. Patient states she relapsed in the last 48 hours. Last use, injected this morning. Patient subsequently complains of feeling dizzy, sweaty, lightheaded short of breath. History of hypothyroidism not currently on medications. Also history of anxiety and PVCs. Supposed to be on a beta-geo. Patient states she recently moved back to the area. She complains of "life" as her trigger for use. Has 2 small children aged 3 and 1. Currently living with a friend who has her children at the moment. Patient is concerned for sexually transmitted infection as she has recently had unprotected sex. Normal menstrual cycles. No fevers, chills, productive cough or COVID concerns. All other review of systems reviewed and negative except as stated. Timing/Duration: 1-3 Hours Severity: Severe Associated Systoms: Shortness of Air, Other (palpitations, sweating anxiety; dizzy) Allergies and Home Medications Allergies Coded Allergies: No Known Drug Allergies (Verified , 08/08/09) Patient Home Medication List Home Medication List Reviewed: Yes Acetaminophen (Tylenol Extra Strength) 500 Mg Tablet, 500 MG PO PRN PRN for PAIN-MILD, (Reported) Entered as Reported by: WESLY DAVID on 07/05/17 0150 Ibuprofen (Ibuprofen) 600 Mg Tablet, 600 MG PO Q6H PRN for PAIN-MODERATE Prescribed by: ELIDIA GANDARA on 07/06/17 0921 Vit No.124/Iron/FA ( Vitamin Tablet) 1 Each Tablet, 1 EACH PO DAILY, (Reported) Entered as Reported by: WESLY DAVID on 06/15/17 2332 Review of Systems Review of Systems Constitutional: see HPI EENTM: no symptoms reported Respiratory: short of breath Cardiovascular: palpitations Gastrointestinal: no symptoms reported Genitourinary: no symptoms reported Musculoskeletal: no symptoms reported Skin: no symptoms reported Psychiatric/Neurological: Anxiety, Other (dizzy) All Other Systems Reviewed Negative Unless Noted: Yes Past Jzbfupc-Hgezzs-Iuzhia Hx Patient Social History Tobacco Use?: Yes Tobacco type used: Cigarettes Smoking Status: Current Everyday Smoker Substance use?: Yes Substance type: Methamphetamine, Marijuana Alcohol Use?: No Pt feels they are or have been: No Immunizations Up To Date Tetanus Booster (TDap): More than 5yrs PED Vaccines UTD: Yes Influenza Vaccine Up-to-Date: No; Not Current Seasonal Allergies Seasonal Allergies: No Past Medical History Surgery/Hospitalization HX: HYPOTHYROID, ANXIETY, PVCS, DRUG ABUSE TUBAL Surgeries: No Respiratory: No Cardiac: No Neurological: Yes Seizure Disorder Last Menstrual Period: May 28, 2022 Reproductive Disorders: No Female Reproductive Disorders: Ovarian Cyst Sexually Transmitted Disease: No (HPV) HIV/AIDS: No Genitourinary: No Gastrointestinal: Yes (Hepatitis C +) Musculoskeletal: Yes (CHRONIC BACK PAIN) Endocrine: No Loss of Vision: Denies Hearing Impairment: Denies Cancer: No Psychosocial: No Integumentary: No Blood Disorders: No Adverse Reaction/Blood Tranf: No Family Medical History Alcoholism 19 MOTHER, Onset:40's - 50 Family history: Hypertension 19 MOTHER, Onset:40's - 50 History of drug abuse 19 FATHER, Onset:20's - 19 MOTHER, Onset:25's - 30 No Family History of: Abdominal aortic aneurysm Granby's disease Aphasia Cancer Cancer of colon Cataract Chest pain Congenital heart disease Congestive heart failure Cystic fibrosis Dementia Dysphagia Family history: Allergy Family history: Alzheimer's disease Family history: Arthritis Family history: Asthma Family history: Breast disease Family history: Cardiovascular disease Family history: Coronary thrombosis Family history: Diabetes mellitus Family history: Gastrointestinal disease Family history: Glaucoma Family history: Osteoporosis Family history: Thyroid disorder Headache Hearing loss Heart disease Hereditary disease History of - anemia History of - disorder History of - respiratory disease Human immunodeficiency virus (HIV) seropositivity Hypercholesterolemia Infertile Kidney disease Malignant neoplasm of lung Myocardial infarction Parkinson's disease Prostate cancer Psychotic disorder Seizure disorder Stroke Tuberculosis Visual impairment Physical Exam Vital Signs Vital Signs - First Documented 05/28/22 13:12 Temp 36.4 Pulse 92 Resp 20 B/P (MAP) 119/63 (81) Capillary Refill : Height, Weight, BMI Height: 5'4.00" Weight: 171lbs. 0.0oz. 77.223878fn; 23.00 BMI Method:Stated General Appearance: WD/WN, Anxious Eyes: Bilateral Eye Normal Inspection, Bilateral Eye PERRL, Bilateral Eye EOMI HEENT: PERRL/EOMI, Pharynx Normal Neck: Normal Inspection, Supple Respiratory: Lungs Clear, Normal Breath Sounds, No Accessory Muscle Use, No Respiratory Distress Cardiovascular: Regular Rate, Rhythm, Normal Peripheral Pulses, Tachycardia (100) Extremity: Normal Range of Motion Neurologic/Psychiatric: Alert, Oriented x3, Other (anxious) Skin: Normal Color, Warm/Dry, Other (track son bilat forearms) Progress/Results/Core Measures Suspected Sepsis SIRS Temperature: Pulse: 92 Respiratory Rate: 20 Blood Pressure 119 /63 Mean: 81 Results/Orders Lab Results Laboratory Tests Test 05/28/22 14:12 05/28/22 14:26 Range/Units TSH [place] Testing 4.77 0.35-4.94 UIU/ML My Orders Orders - YUE BRUNER MD Ed Iv/Invasive Line Start (05/28/22 13:52) Thyroid Analyzer (05/28/22 13:52) Lorazepam Tablet (Ativan Tablet) (05/28/22 14:00) Ns Iv 1000 Ml (Sodium Chloride 0.9%) (05/28/22 14:00) Chlamydia Trachomatis Urine (05/28/22 13:52) Neis Itz Dna Urine Test (05/28/22 13:52) Vital Signs/I&O 05/28/22 13:12 Temp 36.4 Pulse 92 Resp 20 B/P (MAP) 119/63 (81) Capillary Refill : Blood Pressure Mean: 81 Progress Note : Time: 14:47 Progress Note Long discussion with patient about her intent for sobriety. She states her "" friend" is very supportive and will help hold her accountable as far as her meth use. She is motivated for sobriety by her children. Not currently working. I advised her to follow-up with community health. We will give her contact information for Tony HOOPER. She requested that her thyroid levels be checked today and also STD testing. These are pending. I did offer her 1 mg of Ativan p.o. as well as IV fluids. She ended up declining the Ativan because she did not want to have any medications that would make her sleepy in her system. I advised her that we would follow up with her as far as STD cultures. Return precautions provided. She verbalized understanding. Departure Impression Primary Impression: Methamphetamine abuse, episodic Additional Impression: Anxiety Disposition: 01 HOME, SELF-CARE Condition: Stable Departure-Patient Inst. Decision time for Depature: 14:49 Referrals: [facility]/NARINDER AGUSTIN,LOCAL PHYSICIAN (PCP) Primary Care Physician Patient Instructions: Anxiety, Adult (DC), Drug Abuse and Drug Addiction (DC) Add. Discharge Instructions: Please follow up with a primary care provider for thyroid management. You can call [facility] to get established. [facility] [address] [place] [address] Call for information to re-establish your sobriety. One day at a time. Drink plenty of fluids to stay well hydrated. We will contact you in a couple of days if your STD tests come back positive. Return to the Emergency Department for any new, concerning or emergent complaints. YUE BRUNER MD May 28, 2022 13:52
[2022-05-28] MEDS ORDERED: NS IV 1000 ML 1,000 ML IV SCH (14:00)
[2022-05-28] MEDS ORDERED: LORazepam 1 MG (ATIVAN) TAB PO ONE (14:00)
[2022-05-28 15:24] VITALS: BP 119/63
[2022-05-28] MEDS ORDERED: MECLIZINE 25 MG (ANTIVERT) TAB PO ONE (15:30)
== END 2022-05-28 15:25 | disposition home or self-care (01) ==
LOC: EDUNIT# 12:59 → ER 13:03
DX: F15.10 Other stimulant abuse, uncomplicated (principal); F41.9 Anxiety disorder, unspecified; F17.210 Nicotine dependence, cigarettes, uncomplicated; Z28.310 Unvaccinated for COVID-19
CPT/HCPCS: 36415; 84443; 87491; 87591; 99283

== ENCOUNTER 2022-05-28 19:19 | Emergency (ER) | payer MEDICAID ==
[2022-05-28 20:44] LABS: BASOPHILS % (AUTO) 0 % (0-10); EOSINOPHILS # (AUTO) 0.1 10^3/uL (0.0-0.3); EOSINOPHILS % (AUTO) 1 % (0-10); HEMATOCRIT 40 % (35-52); HEMOGLOBIN 13.7 g/dL (11.5-16.0); LYMPHOCYTES # (AUTO) 1.3 10^3/uL (1.0-4.0); LYMPHOCYTES % (AUTO) 18 % (12-44); MEAN CORPUSCULAR HEMOGLOBIN 31 pg (25-34); MEAN CORPUSCULAR HGB CONC 35 g/dL (32-36); MEAN CORPUSCULAR VOLUME 90 fL (80-99); MONOCYTES # (AUTO) 0.7 10^3/uL (0.0-1.0); MONOCYTES % (AUTO) 9 % (0-12); NEUTROPHILS # (AUTO) 5.2 10^3/uL (1.8-7.8); NEUTROPHILS % (AUTO) 71 % (42-75); PLATELET COUNT 189 10^3/uL (130-400); WHITE BLOOD COUNT 7.3 10^3/uL (4.3-11.0)
[2022-05-28 20:52] LABS: ALBUMIN 3.9 GM/DL (3.2-4.5); CHLORIDE 108 MMOL/L (98-107); POTASSIUM 3.6 MMOL/L (3.6-5.0); SODIUM 140 MMOL/L (135-145)
[2022-05-28 20:53] LABS: CALCIUM 8.6 MG/DL (8.5-10.1)
[2022-05-28 20:55] LABS: GLUCOSE 80 MG/DL (70-105); TOTAL PROTEIN 6.5 GM/DL (6.4-8.2)
[2022-05-28 20:56] LABS: BILIRUBIN,TOTAL 0.5 MG/DL (0.1-1.0); CARBON DIOXIDE 22 MMOL/L (21-32)
[2022-05-28 20:58] LABS: ALKALINE PHOSPHATASE 51 U/L (40-136); CREATININE SERUM 0.78 MG/DL (0.60-1.30); GFR ESTIMATED 103
[2022-05-28 21:00] LABS: BUN/CREATININE RATIO 9
[2022-05-28 21:01] LABS: ALANINE AMINOTRANSFERASE 16 U/L (0-55)
--- NOTE | 2022-05-28 21:54 | ED Respiratory ---
General Chief Complaint: Respiratory Problems Stated Complaint: SOA/BACK PAIN/LIGHTHEADED/DIZZY Nursing Triage Note: PT ARRIVAL TO ER VIA PRIVATE VEHICLE WITH COMPLAINT OF SOA, ANXIETY. PT STATES THAT SHE WAS SEEN EARLIER IN DAY AND WAS GIVEN FLUIDS AND HAD LAB WORK. PT STATES THAT SHE IS NOW HAVING SOME SOA AND BACK PAIN AND BELIEVES ITS AN "AIR BUBBLE". PT STATES THAT SHE RECENTLY RELAPSED ON IV METH AND THINKS SHE GOT AN "AIR BUBBLE" FROM SHOOTING METH. STATES THAT SHE HAS 100% OF THE SYMPTOMS OF SAID "AIR BUBBLE". PT WAS CALM AND BREATHING NORMAL IN WAITING ROOM. PT IMMEDIATELY STARTED MAKING SELF BREATH HARD ONCE IN ROOM. Source: patient Exam Limitations: no limitations History of Present Illness Date Seen by Provider: May 28, 2022 Time Seen by Provider: 19:52 Initial Comments Here with concerns about possible air embolism. 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 She was clean for 2 years and had done quite well but had recent change in family dynamics and she states she ended up using. Her friend now is helping her and she has gotten rid of all of her paraphernalia and she is going to stay with some other friends later so she will have a safe place to stay but she cannot get over the thought that she may have air embolism and she is having difficulty breathing. She is quite anxious on arrival complaining of chest discomfort but O2 saturations are 100%. She is tachycardic but that improved with calm in conversation. Denies nausea or vomiting. Denies other concerns. She was seen earlier today for the same. Timing/Duration: yesterday, getting worse Severity: moderate Associated Symptoms: chest pain/soreness; No cough, No fever/chills, No nasal congestion; shortness of breath Allergies and Home Medications Allergies Coded Allergies: No Known Drug Allergies (Verified , 08/08/09) Patient Home Medication List Home Medication List Reviewed: Yes Acetaminophen (Tylenol Extra Strength) 500 Mg Tablet, 500 MG PO PRN PRN for PAIN-MILD, (Reported) Entered as Reported by: WESLY DAVID on 07/05/17 0150 Ibuprofen (Ibuprofen) 600 Mg Tablet, 600 MG PO Q6H PRN for PAIN-MODERATE Prescribed by: ELIDIA GANDARA on 07/06/17 0921 Vit No.124/Iron/FA ( Vitamin Tablet) 1 Each Tablet, 1 EACH PO DAILY, (Reported) Entered as Reported by: WESLY DAVID on 06/15/17 5356 Review of Systems Review of Systems Constitutional: see HPI; No chills, No fever EENTM: No nose congestion, No throat pain Respiratory: No cough; short of breath Cardiovascular: chest pain, palpitations Gastrointestinal: No nausea, No vomiting Genitourinary: no symptoms reported Musculoskeletal: no symptoms reported Skin: no symptoms reported Psychiatric/Neurological: Anxiety, Emotional Problems All Other Systems Reviewed Negative Unless Noted: Yes Past Inncxzk-Kfutta-Ogwygm Hx Patient Social History Tobacco Use?: Yes Tobacco type used: Cigarettes Smoking Status: Current Everyday Smoker Use of E-Cig and/or Vaping dev: No Substance use?: Yes Substance type: Methamphetamine Substance frequency: Daily Alcohol Use?: No Pt feels they are or have been: No Immunizations Up To Date Tetanus Booster (TDap): More than 5yrs PED Vaccines UTD: Yes Influenza Vaccine Up-to-Date: No; Not Current Seasonal Allergies Seasonal Allergies: No Past Medical History Surgery/Hospitalization HX: HYPOTHYROID, ANXIETY, PVCS, DRUG ABUSE TUBAL Surgeries: No Respiratory: No Cardiac: No Neurological: Yes Seizure Disorder Reproductive Disorders: No Female Reproductive Disorders: Ovarian Cyst Sexually Transmitted Disease: No (HPV) HIV/AIDS: No Genitourinary: No Gastrointestinal: Yes (Hepatitis C +) Musculoskeletal: Yes (CHRONIC BACK PAIN) Endocrine: No Loss of Vision: Denies Hearing Impairment: Denies Cancer: No Psychosocial: No Integumentary: No Blood Disorders: No Adverse Reaction/Blood Tranf: No Family Medical History Alcoholism 19 MOTHER, Onset:40's - 50 Family history: Hypertension 19 MOTHER, Onset:40's - 50 History of drug abuse 19 FATHER, Onset:20's - 19 MOTHER, Onset:25's - 30 Physical Exam Vital Signs - First Documented 05/28/22 19:41 Temp 36.6 Pulse 124 Resp 22 B/P (MAP) 138/105 (116) Pulse Ox 100 O2 Delivery Room Air Capillary Refill : Less Than 3 Seconds Height: 5'4.00" Weight: 171lbs. 0.0oz. [id number]; 23.00 BMI Method:Stated General Appearance: moderate distress (Anxious but columns with conversation) HEENT: PERRL/EOMI, pharynx normal Neck: full range of motion, supple Respiratory: lungs clear, normal breath sounds Cardiovascular: no murmur, tachycardia Gastrointestinal: non tender, soft Extremities: non-tender, normal inspection Neurologic/Psychiatric: alert, oriented x 3, other (Very anxious) Skin: normal color, warm/dry Progress/Results/Core Measures Suspected Sepsis SIRS Temperature: Pulse: 124 Respiratory Rate: 22 Laboratory Tests 05/28/22 20:40: White Blood Count 7.3 Blood Pressure 138 /105 Mean: 116 Laboratory Tests 05/28/22 20:40: Creatinine 0.78, Platelet Count 189, Total Bilirubin 0.5 Results/Orders Lab Results Laboratory Tests Test 05/28/22 20:40 Range/Units White Blood Count 7.3 4.3-11.0 10^3/uL Red Blood Count 4.40 3.80-5.11 10^6/uL Hemoglobin 13.7 11.5-16.0 g/dL Hematocrit 40 35-52 % Mean Corpuscular Volume 90 80-99 fL Mean Corpuscular Hemoglobin 31 25-34 pg Mean Corpuscular Hemoglobin Concent 35 32-36 g/dL Red Cell Distribution Width 11.5 10.0-14.5 % Platelet Count 189 130-400 10^3/uL Mean Platelet Volume 10.0 9.0-12.2 fL Immature Granulocyte % (Auto) 0 % Neutrophils (%) (Auto) 71 42-75 % Lymphocytes (%) (Auto) 18 12-44 % Monocytes (%) (Auto) 9 0-12 % Eosinophils (%) (Auto) 1 0-10 % Basophils (%) (Auto) 0 0-10 % Neutrophils # (Auto) 5.2 1.8-7.8 10^3/uL Lymphocytes # (Auto) 1.3 1.0-4.0 10^3/uL Monocytes # (Auto) 0.7 0.0-1.0 10^3/uL Eosinophils # (Auto) 0.1 0.0-0.3 10^3/uL Basophils # (Auto) 0.0 0.0-0.1 10^3/uL Immature Granulocyte # (Auto) 0.0 0.0-0.1 10^3/uL D-Dimer 0.32 0.00-0.49 UG/ML Sodium Level 140 135-145 MMOL/L Potassium Level 3.6 3.6-5.0 MMOL/L Chloride Level 108 H 98-107 MMOL/L Carbon Dioxide Level 22 21-32 MMOL/L Anion Gap 10 5-14 MMOL/L Blood Urea Nitrogen 7 7-18 MG/DL Creatinine 0.78 0.60-1.30 MG/DL Estimat Glomerular Filtration Rate 103 BUN/Creatinine Ratio 9 Glucose Level 80 70-105 MG/DL Calcium Level 8.6 8.5-10.1 MG/DL Corrected Calcium 8.7 8.5-10.1 MG/DL Total Bilirubin 0.5 0.1-1.0 MG/DL Aspartate Amino Transf (AST/SGOT) 14 5-34 U/L Alanine Aminotransferase (ALT/SGPT) 16 0-55 U/L Alkaline Phosphatase 51 40-136 U/L Troponin I < 0.028 <0.028 NG/ML C-Reactive Protein High Sensitivity 0.59 H 0.00-0.50 MG/DL Total Protein 6.5 6.4-8.2 GM/DL Albumin 3.9 3.2-4.5 GM/DL My Orders Orders - MEGAN ANDERSON MD Ed Iv/Invasive Line Start (05/28/22 20:11) Cbc With Automated Diff (05/28/22 20:11) Comprehensive Metabolic Panel (05/28/22 20:11) Hs C Reactive Protein (05/28/22 20:11) Fibrin Degradation Products (05/28/22 20:11) Troponin I Hendricks (05/28/22 20:11) Vital Signs/I&O 05/28/22 05/28/22 05/28/22 19:41 19:41 21:55 Temp 36.6 Pulse 124 102 Resp 22 20 B/P (MAP) 138/105 (116) 106/83 Pulse Ox 100 98 O2 Delivery Room Air Room Air Room Air Capillary Refill : Less Than 3 Seconds Blood Pressure Mean: 116 Progress Note : Progress Note Seen and evaluated. Patient is very anxious but is able to calm with conversation. We did discuss avoiding methamphetamine and safety net options in the community including medical and [place]-based programs for drug abuse. She had declined labs earlier but now wants to get this off of her mind. I do not believe there is concern for air embolism but we will check basic labs including D-dimer and troponin. Monitor patient. 2157: CBC is normal. Chemistry does not show any concerning findings and troponin and D-dimer are negative. Patient is feeling much better now and would like to just go home. We did talk about programs for drug abuse again and she was very appreciative of the conversation. Discharged home with return precautions. Patient verbalized understanding of instructions and agreement with plan. Departure Impression Primary Impression: Chest pain Qualified Codes: R07.9 - Chest pain, unspecified Additional Impression: Anxiety Disposition: HOME, SELF-CARE Condition: Improved Departure-Patient Inst. Decision time for Depature: 21:58 Referrals: NO,LOCAL PHYSICIAN (PCP/Family) Primary Care Physician Patient Instructions: Chest Pain (DC) Add. Discharge Instructions: All discharge instructions reviewed with patient and/or family. Voiced understanding. Do not use methamphetamine. Avoid any drugs or alcohol. Follow-up with your doctor in a few days for recheck. Seek out treatment programs including medical and/or [place]-based programs to help you overcome addiction. There is help for you. Return for worse pain, fever, vomiting, weakness, breathing problems or other concerns as needed. MEGAN ANDERSON MD May 28, 2022 21:54
[2022-05-28 21:55] VITALS: BP 106/83
== END 2022-05-28 21:55 | disposition home or self-care (01) ==
LOC: EDUNIT# 19:19 → ER 19:22
DX: R07.89 Other chest pain (principal); F41.9 Anxiety disorder, unspecified; F17.210 Nicotine dependence, cigarettes, uncomplicated; Z28.310 Unvaccinated for COVID-19
CPT/HCPCS: 36415; 80053; 84484; 85025; 85379; 86141